=== PATIENT | female | born 1945 | race Caucasian/White ===

== ENCOUNTER → 2019-10-18 | Day surgery (SDC) | payer MEDICARE, OTHER ==
--- NOTE | 2019-10-15 13:33 | Diagnostic Imaging Report ---
EXAM: CHEST 2 VIEWS DATE: 10/15/2019 1:11 PM INDICATION: C44.321, preoperative evaluation COMPARISON: None FINDINGS: The trachea is midline. The lungs are symmetrically expanded without evidence for large focal consolidation, pneumothorax, or significant pleural effusion. The cardiomediastinal silhouette and pulmonary vasculature are within normal limits. Degenerative changes noted of the visualized spine. No acute osseous abnormality is identified. The surrounding soft tissues are unremarkable. IMPRESSION: No acute cardiopulmonary process identified. Signed by: Dr. Hernandez Land MD on 10/15/2019 1:29 PM
[2019-10-15 14:17] LABS: BASOPHILS % 0.7 % (0.0-1.0); EOSINOPHILS # (AUTO) 0.1 (0.0-0.4); EOSINOPHILS % 1.6 % (0.0-6.0); HEMATOCRIT 39.7 % (34.2-44.1); HEMOGLOBIN 13.8 g/dL (12.0-16.0); LYMPHOCYTES # (AUTO) 1.2 (1.0-3.2); LYMPHOCYTES % 22.5 % (18.0-39.1); MEAN CORPUSCULAR HEMOGLOBIN 31.1 pg (28-32); MEAN CORPUSCULAR HGB CONC 34.8 g/dL (31-35); MEAN CORPUSCULAR VOLUME 89.4 fL (81-99); MONOCYTES # (AUTO) 0.4 (0.2-0.8); MONOCYTES % 6.5 % (4.4-11.3); NEUTROPHILS # (AUTO) 3.8 (2.1-6.9); NEUTROPHILS % 68.3 % (38.7-80.0); PLATELET COUNT 186 x10e3/uL (140-360); RED BLOOD COUNT 4.44 x10e6/uL (3.6-5.1); RED CELL DISTRIBUTION WIDTH 13.2 % (11.7-14.4)
[~2019-10-18] MED LIST: BALANCED SALT SOLN (OPTH) 15 ML BTL IO ONE; CEFAZOLIN SOD 1 GM/NS 50ML 50 ML IV ONE; CETIRIZINE HCL10 MG PO; DEXAMETHASONE SOD PHOS INJ 4 MG/ML VIAL ONE; ETOMIDATE 2 MG/ML 10 ML INJ IV ONE; FENTANYL CITRATE/PF 100MCG/2 ML INJ ONE; HYDROCHLOROTHIA25 MG PO; KETOROLAC TROMETHAMINE 30 MG/ML VIAL ONE; LATANOPROST2.5 ML OP; LIDOCAINE 1% W/EPINEPHRINE 20 ML VIAL ONE; MIDAZOLAM HCL 2 MG/2 ML VIAL ONE; MUPIROCIN 2% OINT 22 GM TUBE ONE; ONDANSETRON HCL INJ 2MG/ML 2ML 2 MG/ML VIAL ONE; POVIDONE IODINE 5% (OPTH) 30 ML BTL ONE; SEVOFLURANE INHAL SOLN 250 ML PEN BTL ONE; VASOTEC10 MG PO
[2019-10-18 09:35] VITALS: BP 170/84
--- NOTE | 2019-10-18 13:29 | Operative Report ---
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 POSTOPERATIVE DIAGNOSIS: Squamous cell carcinoma of nose. PROCEDURE: Bilobed flap closure of Mohs defect for squamous cell carcinoma of nose 15 cm2. ANESTHESIA: General. HISTORY: The patient is a 73-year-old female, who underwent Mohs micrographic surgery yesterday for removal of a squamous cell carcinoma on the tip of the nose. The resultant defect measures approximately 1.5 cm in diameter. The risks, benefits, and alternatives were discussed with the patient and the family, and they are prepared to undergo the flap closure for reconstruction. PROCEDURE IN DETAIL: The patient was marked preoperatively in the holding area. She was brought to the operating theater and after the induction of adequate general anesthesia, she was prepped and draped in a supine position and a time-out was performed. The procedure was begun by making a template of the defect and transferring this to the adjacent bilobed flap design. Once the flap was designed, the soft tissues of the dorsal aspect and the lateral aspect of the nose were infiltrated with 1% Xylocaine with epinephrine. After waiting an appropriate amount of time for maximum vasoconstrictive effect, the incisions were made through the skin and subcutaneous tissue. All bleeding points were attended to using the electrocautery. The flap was elevated off the bony and cartilaginous structures of the nose, taking care to maintain adequate thickness to maintain vascularity. Once the flap was completely elevated, the inferior caudal lobe was then rotated and transposed into the primary Mohs defect. It was secured in place using 5-0 nylon sutures in an interrupted fashion. At this point, the secondary flap was then rotated into the defect made by the 1st flap and it was trimmed and inset using 5-0 nylon sutures in an interrupted fashion as well. The vertical limb was then closed primarily with 5-0 nylon in interrupted horizontal mattress fashion. The wound was noted to be hemostatic. The incision was dressed with Bactroban ointment, Xeroform gauze, and a sterile bulking conforming bandage. The patient tolerated the procedure well. The estimated blood loss of procedure was 10-15 mL. She was returned to recovery room in satisfactory condition and discharged with a postoperative instruction sheet as well as a followup appointment. Jayden Kristin, MD ER/MODL /[id number]
== END | disposition home or self-care (01) ==
LOC: OR 05:02
PROVIDERS: ATTEND Plastic Surgery
DX: Z48.3 Aftercare following surgery for neoplasm (principal); Z85.828 Personal history of other malignant neoplasm of skin; I10 Essential (primary) hypertension; Z01.810 Encounter for preprocedural cardiovascular examination; Z01.812 Encounter for preprocedural laboratory examination; Z01.818 Encounter for other preprocedural examination; Z11.59 Encounter for screening for other viral diseases
CPT/HCPCS: 14061; 36415; 71046; 85025; 87635; 93005; J0690; J1100; J1885; J2250; J2405; J3010

== ENCOUNTER → 2020-12-04 | Day surgery (SDC) | payer MEDICARE ==
[2020-12-01 09:32] LABS: BASOPHILS % 0.7 % (0.0-1.0); EOSINOPHILS # (AUTO) 0.1 (0.0-0.4); EOSINOPHILS % 1.4 % (0.0-6.0); HEMATOCRIT 40.5 % (34.2-44.1); HEMOGLOBIN 13.8 g/dL (12.0-16.0); LYMPHOCYTES % 22.4 % (18.0-39.1); MEAN CORPUSCULAR HEMOGLOBIN 31.4 pg (28-32); MEAN CORPUSCULAR HGB CONC 34.1 g/dL (31-35); MEAN CORPUSCULAR VOLUME 92.3 fL (81-99); MONOCYTES # (AUTO) 0.4 (0.2-0.8); MONOCYTES % 8.5 % (4.4-11.3); NEUTROPHILS # (AUTO) 2.8 (2.1-6.9); PLATELET COUNT 182 x10e3/uL (140-360); RED BLOOD COUNT 4.39 x10e6/uL (3.6-5.1); RED CELL DISTRIBUTION WIDTH 12.8 % (11.7-14.4)
[2020-12-01 10:07] LABS: ANION GAP 13.3 mmol/L (8-16); CALCIUM 9.1 mg/dL (8.4-10.2); CREATININE, SERUM 0.72 mg/dL (0.57-1.11); POTASSIUM 3.3 mmol/L (3.5-5.1)
[~2020-12-04] MED LIST changes: +ACETAMINOPHEN-1 EAC3 PO; +ATORVASTATIN CA10 MG PO; -BALANCED SALT SOLN (OPTH) 15 ML BTL IO ONE; -CEFAZOLIN SOD 1 GM/NS 50ML 50 ML IV ONE; +EPHEDRINE SULFATE INJ 50 MG/ML VIAL ONE; -ETOMIDATE 2 MG/ML 10 ML INJ IV ONE; +EYE LUBRICANT OPTH OINT 3.5GM TUBE OP ONE; -FENTANYL CITRATE/PF 100MCG/2 ML INJ ONE; +ISOFLURANE INHAL SOLN 250 ML BTL INH ONE; -KETOROLAC TROMETHAMINE 30 MG/ML VIAL ONE; +LIDOCAINE HCL 2% LOCAL INJ 5 ML SDV VIAL INJ ONE; +LOTREL 5-20 MG1 EACH PO; -MIDAZOLAM HCL 2 MG/2 ML VIAL ONE; +POVIDONE IODINE 0.05% 0.05 % ML PO ONE; -POVIDONE IODINE 5% (OPTH) 30 ML BTL ONE; +PROPOFOL IV EMULSION 10 MG/ML 20 ML VIAL ONE; -SEVOFLURANE INHAL SOLN 250 ML PEN BTL ONE; +SODIUM CHLORIDE 0.9% 50ML 50 ML ONE
[2020-12-04 06:34] LABS: ANION GAP 16.1 mmol/L (8-16); CALCIUM 9.1 mg/dL (8.4-10.2); CREATININE, SERUM 0.72 mg/dL (0.57-1.11); POTASSIUM 4.1 mmol/L (3.5-5.1)
[2020-12-04 09:29] VITALS: BP 155/89
== END | disposition home or self-care (01) ==
LOC: OR 05:53
PROVIDERS: ATTEND Plastic Surgery
DX: C44.01 Basal cell carcinoma of skin of lip (principal); I10 Essential (primary) hypertension; E78.5 Hyperlipidemia, unspecified; Z01.810 Encounter for preprocedural cardiovascular examination; Z01.812 Encounter for preprocedural laboratory examination; Z01.818 Encounter for other preprocedural examination; Z20.822 Contact with and (suspected) exposure to COVID-19
CPT/HCPCS: 14061; 36415 ×2; 71046; 80048 ×2; 85025; 93005; J0690; J1100; J2001; J2405; J2704; U0002